=== PATIENT | female | born 1990 | race African-American/Black ===

== ENCOUNTER 2019-02-01 04:48 | Inpatient (IN) ==
[2019-02-01] MEDS ORDERED: BUTORPHANOL 2 MG/ML VIAL IV PRN (05:02)
[2019-02-01] MEDS ORDERED: MEPERIDINE 50 MG/1 ML VIAL IV PRN (05:02)
[2019-02-01] MEDS ORDERED: ONDANSETRON 4 MG/2 ML VIAL IV PRN (05:02)
[2019-02-01] MEDS ORDERED: OXYTOCIN/LR 20 UNIT/1,000 ML BAG IV ONE (05:04)
[2019-02-01] MEDS ORDERED: miSOPROStol 200 MCG TABLET ONE (05:06)
[2019-02-01] MEDS ORDERED: LIDOCAINE 1% 50 ML VIAL ONE (05:06)
[2019-02-01] MEDS ORDERED: CARBOPROST TROMETHAMINE 250 MCG/ML AMP IM ONE (05:07)
[2019-02-01 05:26] LABS: Basophils # 0.1 10*3/uL (0.0-0.2); Basophils % 0.3 % (0.0-0.8); Eosinophils % 0.2 % (0.00-10.9); Hematocrit 39.6 VOL% (35.7-47.0); Hemoglobin 12.4 GM/DL (12.0-16.0); Immature Granulocytes % 0.8 %; Immature Granulocytes Absolute 0.13 #; Lymphocytes # 2.2 10*3/uL (1.4-4.0); Lymphocytes % 13.7 % (21.3-54.2); Mean Corpuscular HGB Conc 31.3 GM/DL (32-36); Mean Corpuscular Volume 82.7 FL (87-102); Mean Platelet Volume 10.5 FL (9.6-12.0); Monocytes % 8.6 % (1.7-12.7); Neutrophils % 76.4 % (38.7-73.9); Platelet Count 250 T/CUMM (130-400); Red Blood Count 4.79 MC/CUMM (3.8-5.5); Red Cell Distribution Width 14.6 % (9.3-17.3); White Blood Count 16.2 T/CUMM (4-12)
[2019-02-01] MEDS ORDERED: LACTATED RINGERS 1,000 ML IV SCH (05:30)
[2019-02-01 06:01] LABS: Cord Arterial Blood HCO3 18.8 MMOL/L
[2019-02-01 06:06] LABS: Alanine Aminotransferase 11 U/L (13-56); Albumin 2.9 G/DL (3.4-5.0); Alkaline Phosphatase 297 U/L (45-117); Aspartate Amino Transferase 14 U/L (0-37); Bilirubin,Total < 0.39 MG/DL (0.2-1.0); Blood Urea Nitrogen 7 MG/DL (7-18); Calcium 9.1 MG/DL (8.5-10.1); Glucose 108 MG/DL (74-106); Osmolality,Calculated 275.5 MOS/KG (273-304); Total Protein 7.3 G/DL (6.4-8.3)
[2019-02-01 06:07] LABS: Cord Venous Blood HCO3 21.4 MMOL/L; Cord Venous Blood PCO2 41.7 MMHG; Cord Venous Blood PO2 34.4
[2019-02-01] MEDS ORDERED: WITCH HAZEL PADS 100/JAR TOP PRN (07:28)
[2019-02-01] MEDS ORDERED: BENZOCAINE 20%/MENTHOL 0.5% SPRAY 56 GM CAN TOP PRN (07:28)
[2019-02-01] MEDS ORDERED: MEASLES/MUMPS/RUBELLA VACCINE 0.5 ML VIAL SUBCUT ONE (07:28)
[2019-02-01] MEDS ORDERED: IBUPROFEN 800 MG TABLET PO PRN (07:28)
[2019-02-01] MEDS ORDERED: LANOLIN 50% CREAM 0.3 OZ TUBE TOP PRN (07:28)
[2019-02-01] MEDS ORDERED: DIPH/TET/ACEL PERT BOOSTER VACCINE 0.5 ML VIAL IM ONE (07:28)
[2019-02-01] MEDS ORDERED: RHO(D) IMMUNE GLOBULIN 300 MCG SYRINGE IM ONE (07:28)
[2019-02-01] MEDS ORDERED: ACETAMINOPHEN 500 MG TABLET PO PRN (07:28)
[2019-02-01] MEDS ORDERED: BISACODYL 10 MG SUPP RECTAL PRN (07:28)
[2019-02-01] MEDS ORDERED: HYDROCORTISONE 2.5% RECTAL CREAM 30 GM TUBE TOP PRN (07:28)
[2019-02-01] MEDS: DOCUSATE SODIUM 100 MG CAPSULE PO SCH ×2 (11:30→21:33)
[2019-02-02 05:10] LABS: Basophils # 0.1 10*3/uL (0.0-0.2); Basophils % 0.4 % (0.0-0.8); Eosinophils # 0.2 10*3/uL (0.0-0.87); Eosinophils % 1.2 % (0.00-10.9); Hematocrit 32.2 VOL% (35.7-47.0); Hemoglobin 10.3 GM/DL (12.0-16.0); Immature Granulocytes % 0.6 %; Immature Granulocytes Absolute 0.08 #; Lymphocytes # 4.3 10*3/uL (1.4-4.0); Mean Corpuscular Volume 81.3 FL (87-102); Mean Platelet Volume 10.7 FL (9.6-12.0); Monocytes % 9.2 % (1.7-12.7); Neutrophils % 57.6 % (38.7-73.9); Platelet Count 206 T/CUMM (130-400); Red Blood Count 3.96 MC/CUMM (3.8-5.5); Red Cell Distribution Width 14.5 % (9.3-17.3); White Blood Count 13.9 T/CUMM (4-12)
[2019-02-02] MEDS: DOCUSATE SODIUM 100 MG CAPSULE PO SCH ×2 (09:30→20:40)
[2019-02-03 07:16] VITALS: BP 119/76
[2019-02-03] MEDS: DOCUSATE SODIUM 100 MG CAPSULE PO SCH (08:59)
== END 2019-02-03 11:45 | disposition home or self-care (01) | DRG 560 ==
LOC: N.LDOUT 04:48 → N.LD 04:49 → N.OB 15:00
PROVIDERS: ADMIT Obstetrics & Gynecology; ATTEND Obstetrics & Gynecology